=== PATIENT | male | born 1965 | race African-American/Black ===

== ENCOUNTER 2023-08-06 14:02 | Inpatient (IN) | payer OTHER ==
[~2023-08-06] VITALS: Ht 190.5 cm; Wt 135.7 kg
[~2023-08-06 14:02] MED LIST: ARIP30TA2 PO; CLON0.5T4 PO; LURA40TA2 PO
[2023-08-06 14:56] LABS: BASOPHILS % 0.6 % (0.0-2.0); EOSINOPHILS % 1.3 % (0.0-5.0); HEMATOCRIT. 40.2 % (42.0-52.0); HEMOGLOBIN. 13.4 g/dL (14.0-18.0); LYMPHOCYTES % 25.2 % (20.0-50.0); MEAN CORPUSCULAR HEMOGLOBIN 29.6 pg (28.0-32.0); MEAN CORPUSCULAR HGB CONC 33.4 g/dL (31.0-37.0); MEAN CORPUSCULAR VOLUME 88.6 fL (80.0-94.0); MEAN PLATELET VOLUME 8.5 fl (7.4-10.4); MONOCYTES % 6.1 % (2.0-8.0); NEUTROPHILS % 66.8 % (40.0-76.0); PLATELET 206 x1000/uL (130-400); RED BLOOD CELL COUNT 4.53 mill/uL (4.7-6.1); RED CELL DISTRIBUTION WIDTH 15.2 % (11.6-14.6); WHITE BLOOD COUNT 7.7 x1000/uL (4.5-11.0)
[2023-08-06 15:06] LABS: PROTHROMBIN TIME 10.6 sec (9.6-11.0)
[2023-08-06 15:11] LABS: AMMONIA < 10 uMol/L (<32)
[2023-08-06 15:45] LABS: LACTIC ACID 40.1 mmol/L (0.4-2.0)
[2023-08-06 16:02] LABS: ALANINE AMINOTRANSFERASE < 7 IU/L (10-49); ALBUMIN 4.3 g/dL (3.2-4.8); ASPARTATE AMINOTRANSFERASE 11 IU/L (<34); BILIRUBIN TOTAL 0.4 mg/dL (0.1-1.0); CALCIUM 9.2 mg/dL (8.7-10.4); CARBON DIOXIDE 31 mEq/L (21-32); CHLORIDE 94 mEq/L (98-107); CREATINE KINASE 226 IU/L (46-171); GLUCOSE 175 mg/dL (70-105); POTASSIUM 3.7 mEq/L (3.5-5.1); PROTEIN TOTAL 7.8 g/dL (6.0-8.3); SODIUM 135 mEq/L (136-145); TROPONIN I HIGH SENSITIVITY 35 ng/L (3.0-53); UREA NITROGEN BLOOD 15 mg/dL (9-23)
[2023-08-06 16:13] LABS: ETHANOL BLOOD < 10 mg/dL (<10)
[2023-08-06 17:13] LABS: TROPONIN I HIGH SENSITIVITY 195 ng/L (3.0-53)
[2023-08-06] MEDS ORDERED: ASPIRIN 81MG TABLET PO ONE (17:45)
[2023-08-06] MEDS ORDERED: CLONIDINE 0.1MG TABLET PO PRN (23:00)
[2023-08-06] MEDS ORDERED: IPRATROPIUM/ALBUTEROL 0.5-3(2.5)MG/3ML NEB HHN PRN (23:00)
[2023-08-06] MEDS ORDERED: ONDANSETRON HCL 4MG/2ML INJ IV PRN (23:00)
[2023-08-07] VITALS (7 sets, daily range): BP systolic 110–165; BP diastolic 63–73; PULSE 74–89; RESP 16–20; TEMP 97.5–98.8
[2023-08-07] MEDS ORDERED: DEXTROSE 50% WATER 50ML SYRINGE IV PRN (01:15)
[2023-08-07] MEDS: BLOOD SUGAR DIAGNOSTIC STRIP TEST SCH ×4 (06:41→20:56)
[2023-08-07] MEDS: INSULIN LISPRO 100 UNITS/ML SUBCUT SCH ×4 (06:41→20:56)
[2023-08-07 06:53] LABS: BASOPHILS % 0.4 % (0.0-2.0); EOSINOPHILS % 1.1 % (0.0-5.0); HEMATOCRIT. 37.1 % (42.0-52.0); HEMOGLOBIN. 12.6 g/dL (14.0-18.0); LYMPHOCYTES % 20.2 % (20.0-50.0); MEAN CORPUSCULAR HEMOGLOBIN 30.2 pg (28.0-32.0); MEAN CORPUSCULAR HGB CONC 34.1 g/dL (31.0-37.0); MEAN CORPUSCULAR VOLUME 88.5 fL (80.0-94.0); MEAN PLATELET VOLUME 8.6 fl (7.4-10.4); MONOCYTES % 10.9 % (2.0-8.0); NEUTROPHILS % 67.4 % (40.0-76.0); PLATELET 195 x1000/uL (130-400); RED BLOOD CELL COUNT 4.19 mill/uL (4.7-6.1); RED CELL DISTRIBUTION WIDTH 15.1 % (11.6-14.6); WHITE BLOOD COUNT 10.4 x1000/uL (4.5-11.0)
[2023-08-07 07:52] LABS: HEPATITIS B SURFACE ANTIGEN NEGATIVE (Negative); HEPATITIS C AB NON REACTIVE (Neg) (Negative)
[2023-08-07] MEDS: AMLODIPINE 10MG TABLET PO SCH (08:36)
[2023-08-07 09:00] LABS: ALANINE AMINOTRANSFERASE < 7 IU/L (10-49); ASPARTATE AMINOTRANSFERASE 16 IU/L (<34); BILIRUBIN DIRECT 0.1 mg/dL (<=3.0); BILIRUBIN TOTAL 0.4 mg/dL (0.1-1.0); CARBON DIOXIDE 34 mEq/L (21-32); CHLORIDE 93 mEq/L (98-107); CHOLESTEROL 174 mg/dL (<200); CREATINE KINASE 299 IU/L (46-171); GLUCOSE 110 mg/dL (70-105); HDL CHOLESTEROL 30 mg/dL (>55); LDL CHOLESTEROL 113 mg/dL (5-100); POTASSIUM 4.7 mEq/L (3.5-5.1); PROTEIN TOTAL 7.4 g/dL (6.0-8.3); SODIUM 134 mEq/L (136-145); T4 FREE 1.21 ng/dL (0.89-1.76); THYROID STIMULATING HORMONE 1.37 uIU/mL (0.55-4.78); TRIGLYCERIDE 125 mg/dL (0-150); UREA NITROGEN BLOOD 21 mg/dL (9-23)
[2023-08-07 09:08] LABS: CREATININE 6.2 mg/dL (0.6-1.3); TROPONIN I HIGH SENSITIVITY 2541 ng/L (3.0-53)
[2023-08-07] MEDS: ASPIRIN 81MG TABLET PO SCH (13:44)
[2023-08-07] MEDS: ENOXAPARIN 120MG/0.8ML SYR SUBCUT SCH (13:45)
[2023-08-07] MEDS: CLONAZEPAM 0.5MG TABLET PO SCH (17:38)
[2023-08-07 18:05] LABS: TROPONIN I HIGH SENSITIVITY 1454 ng/L (3.0-53)
[2023-08-07] MEDS: ATORVASTATIN CALCIUM 40MG TABLET PO SCH (20:56)
[2023-08-07] MEDS: FAMOTIDINE 20MG TABLET PO SCH (20:56)
[2023-08-08] VITALS: BP 140/68; PULSE 77; RESP 18; TEMP 97.7
[2023-08-08 00:02] LABS: TROPONIN I HIGH SENSITIVITY 1202 ng/L (3.0-53)
[2023-08-08 04:00] VITALS: BP 130/53; PULSE 76; RESP 15; TEMP 98.1
[2023-08-08 05:49] LABS: HEMATOCRIT 34.9 % (42.0-52.0); HEMOGLOBIN 11.8 g/dL (14.0-18.0); MEAN CORPUSCULAR HEMOGLOBIN 29.5 pg (28.0-32.0); MEAN CORPUSCULAR HGB CONC 33.7 g/dL (31.0-37.0); MEAN CORPUSCULAR VOLUME 87.6 fL (80.0-94.0); PLATELET 197 x1000/uL (130-400); RED BLOOD CELL COUNT 3.98 mill/uL (4.7-6.1); WHITE BLOOD COUNT 8.4 x1000/uL (4.5-11.0)
[2023-08-08 05:57] LABS: CALCIUM 8.5 mg/dL (8.7-10.4); POTASSIUM 4.6 mEq/L (3.5-5.1)
[2023-08-08 06:28] LABS: CREATININE 8.4 mg/dL (0.6-1.3)
[2023-08-08] MEDS: BLOOD SUGAR DIAGNOSTIC STRIP TEST SCH ×4 (06:29→21:27)
[2023-08-08] MEDS: INSULIN LISPRO 100 UNITS/ML SUBCUT SCH ×4 (07:20→21:00)
[2023-08-08 08:00] VITALS: BP 143/73; PULSE 88; RESP 15; TEMP 98.3
[2023-08-08] MEDS: ASPIRIN 81MG TABLET PO SCH (09:00)
[2023-08-08] MEDS: AMLODIPINE 10MG TABLET PO SCH (09:00)
[2023-08-08 09:59] LABS: TROPONIN I HIGH SENSITIVITY 765 ng/L (3.0-53)
[2023-08-08 12:00] VITALS: BP 152/56; PULSE 67; RESP 13; TEMP 98.5
[2023-08-08] MEDS: ENOXAPARIN 120MG/0.8ML SYR SUBCUT SCH (15:56)
[2023-08-08 16:00] VITALS: BP 144/61; PULSE 72; RESP 17; TEMP 97.9
[2023-08-08] MEDS: CLONAZEPAM 0.5MG TABLET PO SCH (18:56)
[2023-08-08 20:00] VITALS: BP 136/57; PULSE 64; RESP 11; TEMP 97.9
[2023-08-08] MEDS: FAMOTIDINE 20MG TABLET PO SCH (21:27)
[2023-08-08] MEDS: ATORVASTATIN CALCIUM 40MG TABLET PO SCH (21:27)
[2023-08-08] MEDS ORDERED: DIPHENHYDRAMINE 50MG CAPSULE PO NR (21:30)
[2023-08-09] VITALS (14 sets, daily range): BP systolic 98–162; BP diastolic 46–137; PULSE 56–82; RESP 12–18; TEMP 97.4–98; O2SAT 97
[2023-08-09 01:43] LABS: TROPONIN I HIGH SENSITIVITY 583 ng/L (3.0-53)
[2023-08-09] MEDS: BLOOD SUGAR DIAGNOSTIC STRIP TEST SCH ×4 (07:00→20:54)
[2023-08-09] MEDS: INSULIN LISPRO 100 UNITS/ML SUBCUT SCH ×4 (07:20→20:56)
[2023-08-09 07:21] LABS: HEMATOCRIT 36.4 % (42.0-52.0); HEMOGLOBIN 12.2 g/dL (14.0-18.0); MEAN CORPUSCULAR HGB CONC 33.4 g/dL (31.0-37.0); MEAN CORPUSCULAR VOLUME 89.6 fL (80.0-94.0); PLATELET 197 x1000/uL (130-400); RED BLOOD CELL COUNT 4.06 mill/uL (4.7-6.1); RED CELL DISTRIBUTION WIDTH 14.8 % (11.6-14.6); WHITE BLOOD COUNT 7.4 x1000/uL (4.5-11.0)
[2023-08-09 07:47] LABS: CALCIUM 8.4 mg/dL (8.7-10.4); POTASSIUM 5.1 mEq/L (3.5-5.1)
[2023-08-09 07:49] LABS: CREATININE 10.2 mg/dL (0.6-1.3)
[2023-08-09] MEDS: AMLODIPINE 10MG TABLET PO SCH (08:43)
[2023-08-09] MEDS: ASPIRIN 81MG TABLET PO SCH (08:43)
[2023-08-09] MEDS: ENOXAPARIN 120MG/0.8ML SYR SUBCUT SCH (13:28)
[2023-08-09] MEDS: CLONAZEPAM 0.5MG TABLET PO SCH (17:35)
[2023-08-09] MEDS: FAMOTIDINE 20MG TABLET PO SCH (20:54)
[2023-08-09] MEDS: ATORVASTATIN CALCIUM 40MG TABLET PO SCH (20:54)
== END 2023-08-09 23:54 | disposition short-term general hospital (02) | DRG 637 ==
LOC: ER 14:02 → 3WST 19:15
PROVIDERS: ADMIT Internal Medicine; ATTEND Internal Medicine
PROC: 5A1D70Z Performance of Urinary Filtration, Intermittent, Less than 6 Hours Per Day (ICD-10-PCS; principal; 2023-08-08)
DX: E11.649 Type 2 diabetes mellitus with hypoglycemia without coma (principal); I21.A1 Myocardial infarction type 2; I50.33 Acute on chronic diastolic (congestive) heart failure; I13.2 Hypertensive heart and chronic kidney disease with heart failure and with stage 5 chronic kidney disease, or end stage renal disease; N18.6 End stage renal disease; D64.9 Anemia, unspecified; E11.22 Type 2 diabetes mellitus with diabetic chronic kidney disease; E66.9 Obesity, unspecified; Z68.37 Body mass index [BMI] 37.0-37.9, adult; E87.8 Other disorders of electrolyte and fluid balance, not elsewhere classified; I95.1 Orthostatic hypotension; J44.9 Chronic obstructive pulmonary disease, unspecified; Z79.4 Long term (current) use of insulin; Z79.82 Long term (current) use of aspirin; Z79.899 Other long term (current) drug therapy; Z80.9 Family history of malignant neoplasm, unspecified; Z82.3 Family history of stroke; Z83.3 Family history of diabetes mellitus; Z88.0 Allergy status to penicillin; Z99.2 Dependence on renal dialysis
CPT/HCPCS: 36415; 71045; 80048; 80053; 80061; 80320; 82140; 82248; 82550; 82962; 83036; 83605; 83880; 84439; 84443; 84484; 85025; 85027; 86705; 86850; 86900; 87340; 90935; 93005; 93306; 99285; J1650; Q0163; G0480

== ENCOUNTER 2023-08-25 15:16 | Emergency (ER) | payer MEDICARE, OTHER ==
[~2023-08-25] VITALS: Ht 195.6 cm; Wt 128.0 kg
[2023-08-25] MEDS: DIAZEPAM 5 MG TABLET PO ONE (16:19)
[2023-08-25 17:36] VITALS: BP 116/69; PULSE 75; RESP 18; TEMP 97.7
== END 2023-08-25 17:53 | disposition home or self-care (01) ==
LOC: ER 15:16
DX: F41.1 Generalized anxiety disorder (principal); I12.0 Hypertensive chronic kidney disease with stage 5 chronic kidney disease or end stage renal disease; E11.22 Type 2 diabetes mellitus with diabetic chronic kidney disease; N18.6 End stage renal disease; Z88.0 Allergy status to penicillin
CPT/HCPCS: 99283